=== PATIENT | female | born 1965 | race Caucasian/White ===

== ENCOUNTER 2021-11-23 17:22 | Emergency (ER) | payer SELFPAY ==
[2021-11-23] MEDS ORDERED: Acetaminophen 500 MG TAB ONE (17:58)
[2021-11-23 18:49] LABS: SARS-CoV-2 NAA Rapid Test Not Detected (NotDetected)
== END 2021-11-23 20:04 | disposition home or self-care (01) ==
LOC: CSHERS 17:22
DX: J10.1 Influenza due to other identified influenza virus with other respiratory manifestations (principal); J44.9 Chronic obstructive pulmonary disease, unspecified
CPT/HCPCS: 71045; 93005

== ENCOUNTER 2021-12-30 11:00 | Emergency (ER) | payer SELFPAY ==
[~2021-12-30 11:00] MED LIST: Iopamidol 370 76% 100 ML VIAL ONE
[2021-12-30] MEDS ORDERED: methylPREDNISolone Sod Succ/PF 125 MG/2 ML VIAL ONE (11:26)
[2021-12-30] MEDS ORDERED: Albuterol Sulfate 2.5 mg/3 ml Neb ONE (11:26)
[2021-12-30 11:41] LABS: #Eosinphils 0.6 10x3/uL (0.0-0.5); #Monocytes 0.4 10x3/uL (0.0-1.1); #Neutrophils 2.5 10x3/uL (1.5-8.4); %Basophils 0.6 % (0.0-2.0); %Lymphocytes 25.9 % (18.0-47.0); %Monocytes 8.6 % (0.0-10.0); %Neutrophils 51.7 % (40.0-75.0); Hemoglobin 14.5 g/dL (12.0-15.5); Mean Corpuscular HGB CONC 35.7 g/dL (32.0-36.0); Mean Corpuscular Hemoglobin 30.4 pg (27.0-33.0); Mean Corpuscular Volume 85.1 fl (81.6-98.3); Mean Platelet Volume 9.9 fl (7.4-10.4); Platelet Count 207 10x3/uL (150-450); RBC Distribution Width 12.9 % (11.5-14.5); Red Blood Cell (RBC) Count 4.77 10x6/uL (3.90-5.03); White Blood Cell (WBC) Count 4.9 10x3/uL (3.5-10.5)
[2021-12-30 11:58] LABS: ALT (SGPT) 18 U/L (8-55); AST (SGOT) 19 U/L (5-34); Albumin 4.3 g/dL (3.5-5.0); Alkaline Phosphatase 93 U/L (40-110); Anion Gap 15 mmol/L (10-20); BUN (Urea Nitrogen) 15 mg/dL (9.8-20.1); Bilirubin, Total 0.4 mg/dL (0.2-1.2); Calc. Creatinine Clearance 0 mL/min (70-130); Calcium 9.4 mg/dL (7.8-10.44); Carbon Dioxide 23 mmol/L (22-29); Chloride 109 mmol/L (98-107); Estimated GFR 86; Globulin 3.2 g/dL (2.4-3.5); Glucose 108 mg/dL (70-105); Potassium 3.6 mmol/L (3.5-5.1); Protein, Total 7.5 g/dL (6.0-8.3); Sodium 143 mmol/L (136-145)
[2021-12-30 12:27] LABS: SARS-CoV-2 NAA Rapid Test Not Detected (NotDetected)
[2021-12-30 13:35] LABS: Bilirubin Neg (Negative); Blood, Urine Negative (Negative); Clarity Sl. Cloudy (Clear); Glucose, Urine (Dipstick) Normal (Negative); Ketone, Urine Negative (Negative); Leukocyte Negative (Negative); Nitrite Negative (Negative); Protein, Urine (Dipstick) 15 mg/dl (Neg-Trace); Urobilinogen Normal mg/dL (Less than 2); pH, Urine 6.5 (5.0-9.0)
== END 2021-12-30 13:55 | disposition home or self-care (01) ==
LOC: CSHERS 11:00
DX: J44.1 Chronic obstructive pulmonary disease with (acute) exacerbation (principal); Z20.822 Contact with and (suspected) exposure to COVID-19; Z71.6 Tobacco abuse counseling
CPT/HCPCS: 36415; 71045; 71275; 80053; 81003; 83880; 84484; 85025; 96374; J2930; J7611; J7620; Q9967; U0002

== ENCOUNTER 2022-02-24 17:13 | Emergency (ER) | payer SELFPAY ==
[2022-02-24] MEDS ORDERED: Ipratropium Bromide 2.5 ml Neb ONE (18:48)
[2022-02-24] MEDS ORDERED: predniSONE 20 MG TAB ONE (18:53)
== END 2022-02-24 19:41 | disposition home or self-care (01) ==
LOC: CSHERS 17:13
DX: R06.02 Shortness of breath (principal); J44.9 Chronic obstructive pulmonary disease, unspecified
CPT/HCPCS: 71045; J7512

== ENCOUNTER 2022-11-23 08:59 | Emergency (ER) | payer SELFPAY ==
[2022-11-23 09:49] LABS: Bilirubin Neg (Negative); Blood, Urine 50 (Negative); Clarity Cloudy (Clear); Glucose, Urine (Dipstick) Normal (Negative); Ketone, Urine Negative (Negative); Leukocyte 500 (Negative); Nitrite Negative (Negative); Protein, Urine (Dipstick) 30 mg/dl (Neg-Trace); Urobilinogen Normal mg/dL (Less than 2)
[2022-11-23 09:57] LABS: CAUTI Indications for Culture Dysuria,urgency,freq; WBC/HPF Greater Than 50 HPF (0-3)
[2022-11-23 09:58] LABS: Trichomonas/HPF Rare HPF (None Seen)
[2022-11-23 10:00] LABS: Bacteria/HPF 2+ HPF (None Seen)
[2022-11-23 10:01] LABS: Urine Culture Reflex Yes Yes
[2022-11-23] MEDS ORDERED: cefTRIAXone (ROCEPHIN) 500 MG VIAL ONE (10:23)
[2022-11-23] MEDS ORDERED: Sterile Water 10 ML ONE (10:23)
[2022-11-23] MEDS ORDERED: Doxycycline 100 MG CAP PO SCH (11:00)
[2022-11-24 13:17] LABS: Chlamydia by PCR, Vaginal Swab Not Detected (NotDetected); GC by PCR, Vaginal Swab Not Detected (NotDetected)
== END 2022-11-23 11:12 | disposition home or self-care (01) ==
LOC: CSHERS 08:59
DX: N39.0 Urinary tract infection, site not specified (principal); A60.04 Herpesviral vulvovaginitis; J44.9 Chronic obstructive pulmonary disease, unspecified; N89.8 Other specified noninflammatory disorders of vagina; F17.290 Nicotine dependence, other tobacco product, uncomplicated
CPT/HCPCS: 81001; 87086; 87480; 87491; 87510; 87591; 87660; 94640; 94760; 96372; J0696; J7611

== ENCOUNTER 2022-12-31 13:41 | Emergency (ER) | payer SELFPAY | END 2022-12-31 14:30 | disposition home or self-care (01) | LOC: CSHERS 13:41 | DX: N89.8 Other specified noninflammatory disorders of vagina (principal); F17.290 Nicotine dependence, other tobacco product, uncomplicated | CPT/HCPCS: 99283 ==

== ENCOUNTER 2023-02-12 11:29 | Emergency (ER) | payer SELFPAY ==
[2023-02-12 12:50] LABS: #Eosinphils 0.3 10x3/uL (0.0-0.5); #Monocytes 0.4 10x3/uL (0.0-1.1); #Neutrophils 2.7 10x3/uL (1.5-8.4); %Basophils 0.6 % (0.0-2.0); %Eosinophils 5.6 % (0.0-6.0); %Monocytes 9.3 % (0.0-10.0); %Neutrophils 58.3 % (40.0-75.0); Hematocrit 47.3 % (34.9-44.5); Hemoglobin 16.6 g/dL (12.0-15.5); Mean Corpuscular HGB CONC 35.1 g/dL (32.0-36.0); Mean Corpuscular Volume 85.5 fl (81.6-98.3); Platelet Count 181 10x3/uL (150-450); RBC Distribution Width 12.8 % (11.5-14.5); Red Blood Cell (RBC) Count 5.53 10x6/uL (3.90-5.03); White Blood Cell (WBC) Count 4.6 10x3/uL (3.5-10.5)
[2023-02-12 13:00] LABS: ALT (SGPT) 28 U/L (8-55); AST (SGOT) 29 U/L (5-34); Albumin 4.5 g/dL (3.5-5.0); Alkaline Phosphatase 89 U/L (40-110); Anion Gap 14 mmol/L (10-20); BUN (Urea Nitrogen) 14 mg/dL (9.8-20.1); Bilirubin, Total 0.5 mg/dL (0.2-1.2); Calc. Creatinine Clearance 0 mL/min (70-130); Calcium 9.2 mg/dL (7.8-10.44); Carbon Dioxide 22 mmol/L (22-29); Chloride 105 mmol/L (98-107); Estimated GFR 89; Globulin 3.8 g/dL (2.4-3.5); Glucose 137 mg/dL (70-105); Potassium 4.2 mmol/L (3.5-5.1); Protein, Total 8.3 g/dL (6.0-8.3); Sodium 137 mmol/L (136-145)
[2023-02-12 13:06] LABS: Troponin I Less than 0.010 ng/mL (< 0.028)
[2023-02-12 13:18] LABS: SARS-CoV-2 NAA Rapid Test Not Detected (NotDetected)
== END 2023-02-12 13:39 | disposition home or self-care (01) ==
LOC: CSHERS 11:29
DX: R06.02 Shortness of breath (principal); R00.0 Tachycardia, unspecified; F17.290 Nicotine dependence, other tobacco product, uncomplicated; J44.9 Chronic obstructive pulmonary disease, unspecified
CPT/HCPCS: 71045; 80053; 83605; 84484; 85025; 93005; 94640; 96360

== ENCOUNTER 2023-07-18 08:42 | Emergency (ER) | payer SELFPAY ==
[2023-07-18] MEDS ORDERED: Albuterol 2.5 MG (3 mL) NEB ONE (09:19)
[2023-07-18] MEDS ORDERED: Ipratropium/Albuterol 3 ML NEB ONE (09:20)
[2023-07-18] MEDS ORDERED: Magnesium 2 GM/50 ML BAG (IN WATER) ONE (09:32)
[2023-07-18] MEDS ORDERED: Dexamethasone 10 MG/ML VIAL ONE (09:32)
[2023-07-18 09:50] LABS: #Basophils 0.04 10x3/uL (0.0-0.2); #Eosinphils 0.52 10x3/uL (0.0-0.5); #Monocytes 0.43 10x3/uL (0.0-1.1); #Neutrophils 2.22 10x3/uL (1.5-8.4); %Basophils 0.9 % (0.0-2.0); %Eosinophils 11.9 % (0.0-6.0); %Lymphocytes 26.1 % (18.0-47.0); %Monocytes 9.9 % (0.0-10.0); Hematocrit 42.1 % (34.9-44.5); Hemoglobin 14.7 g/dL (12.0-15.5); Mean Corpuscular HGB CONC 34.9 g/dL (32.0-36.0); Mean Corpuscular Hemoglobin 29.9 pg (27.0-33.0); Mean Corpuscular Volume 85.7 fl (81.6-98.3); Mean Platelet Volume 9.7 fl (7.4-10.4); Platelet Count 201 10x3/uL (150-450); RBC Distribution Width 13.2 % (11.5-14.5); Red Blood Cell (RBC) Count 4.91 10x6/uL (3.90-5.03); White Blood Cell (WBC) Count 4.4 10x3/uL (3.5-10.5)
[2023-07-18 09:59] LABS: ALT (SGPT) 29 U/L (8-55); AST (SGOT) 19 U/L (5-34); Albumin 4.1 g/dL (3.5-5.0); Alkaline Phosphatase 95 U/L (40-110); Anion Gap 15 mmol/L (10-20); BUN (Urea Nitrogen) 20 mg/dL (9.8-20.1); Bilirubin, Total 0.3 mg/dL (0.2-1.2); Calc. Creatinine Clearance 0 mL/min (70-130); Calcium 9.3 mg/dL (7.8-10.44); Carbon Dioxide 21 mmol/L (22-29); Chloride 109 mmol/L (98-107); Estimated GFR 101; Globulin 3.4 g/dL (2.4-3.5); Glucose 116 mg/dL (70-105); Potassium 3.9 mmol/L (3.5-5.1); Protein, Total 7.5 g/dL (6.0-8.3); Sodium 141 mmol/L (136-145)
[2023-07-18 10:01] LABS: Troponin I Less than 0.010 ng/mL (< 0.028)
== END 2023-07-18 10:45 | disposition home or self-care (01) ==
LOC: CSHERS 08:42
DX: J44.1 Chronic obstructive pulmonary disease with (acute) exacerbation (principal); F17.290 Nicotine dependence, other tobacco product, uncomplicated
CPT/HCPCS: 71045; 80053; 84484; 85025; 93005; 96365; 96375; J1100; J3475; J7611; J7620